=== PATIENT | male | born 1995 | race Caucasian/White ===

== ENCOUNTER 2017-06-08 03:05 | Emergency (ER) | payer SELFPAY ==
[2017-06-08 03:13] VITALS: BP 122/83
--- NOTE | 2017-06-08 03:33 | ER Document Report ---
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 He says he has had the rash for 2 weeks. He was seen [facility] the [facility]. He underwent testing for gonorrhea chlamydia syphilis and HIV and hepatitis. All tests were negative except for the syphilis test which was positive. Patient was therefore given a dose of IM penicillin. He says the rash tonight became much worse. He says it does itch. Is not painful. He denies any sores. He denies any headache or confusion or altered mental status. He has no other complaints at this time. He is received penicillin many times in the past without any adverse reactions. TRAVEL OUTSIDE OF THE [place] IN LAST 30 DAYS: No - Related Data Allergies/Adverse Reactions: No Known Allergies Allergy (Unverified 06/08/17 03:08) Past Medical History - Social History Smoking Status: Unknown if Ever Smoked Frequency of alcohol use: None Drug Abuse: None Family History: Reviewed & Not Pertinent Patient has suicidal ideation: No Patient has homicidal ideation: No Renal/ Medical History: Denies: Hx Peritoneal Dialysis Review of Systems - Review of Systems Notes: My Normal Review Basic REVIEW OF SYSTEMS: CONSTITUTIONAL : Denies fever, chills, or sweats. Denies recent illness. EENT: Denies eye, ear, throat, or mouth pain or symptoms. Denies nasal or sinus congestion. RESPIRATORY: Denies cough, cold, or chest congestion. Denies shortness of breath, difficulty breathing, or wheezing. GASTROINTESTINAL: Denies abdominal pain. Denies nausea, vomiting, or diarrhea. GENITOURINARY: Denies difficulty urinating, painful urination, burning, frequency, or blood in urine. MUSCULOSKELETAL: Denies neck or back pain or joint pain or swelling. SKIN: Macular papular rash over extremities and palms and torso. HEMATOLOGIC : Denies easy bruising or bleeding. NEUROLOGICAL: Denies altered mental status or loss of consciousness. Denies headache. Denies weakness or paralysis or loss of use of either side. Denies problems with gait or speech. Denies sensory or motor loss. ALL OTHER SYSTEMS REVIEWED AND NEGATIVE. Physical Exam - Vital signs Vitals: Temp Pulse Resp BP Pulse Ox 98.1 F 101 H 16 122/83 97 06/08/17 03:10 06/08/17 03:10 06/08/17 03:10 06/08/17 03:10 06/08/17 03:10 - Notes Notes: General Appearance: Well nourished, alert, cooperative, no acute distress, no obvious discomfort. Well-appearing. Head: no swelling or tenderness to the head Eyes: PERRL, EOMI, Conjuctiva clear Mouth: No decreasd moisture Lungs: No wheezing, No rales, No rhonci, No accessory muscle use, good air exchange bilaterally. Heart: Normal rate, Regular rythm, No murmur, no rub Abdomen: Normal BS, soft, No rigidity, No abdominal tenderness, No guarding, no rebound, no abdominal masses, no organomegaly Extremities: strength 5/5 in all extremities, good pulses in all extremities, no swelling or tenderness in the extremities, no edema. Skin: Papular rash over the palms and hands and extremities and torso. Neuro: speech clear, oriented x 3, normal affect, responds appropriately to questions. Cranial nerves II through XII are intact. Patient was all extremities without difficulty. No discoordination. Course - Re-evaluation Re-evalutation: 06/08/17 03:37 Patient complains of worsening rash. Is concerned she is or received treatment. Treatment is just received last 24 hours. I do not expect a Jarisch - Herxheimer reaction because the patient has no fever and he was tested negative for HIV. He is not tachycardic and clinically looks very well. Informed patient that I want to wait before initiating further antibiotic treatment. I did look up on [facility] and alternative treatments on some penicillin include doxycycline. He told the patient to write him a prescription for doxycycline but to not start it unless his rash needs to worsen over the next 24 hours. Encouraged him follow-up closely with the health department within 1 week for reevaluation. I informed him to return to ER immediately if he has fevers, confusion, headache, difficulty ambulating or walking. Patient agrees with plan will be discharged home. Dictation of this chart was performed using voice recognition software; therefore, there may be some unintended grammatical errors. - Vital Signs Vital signs: Temp Pulse Resp BP Pulse Ox 98.1 F 101 H 16 122/83 97 06/08/17 03:10 06/08/17 03:10 06/08/17 03:10 06/08/17 03:10 06/08/17 03:10 Discharge - Discharge Clinical Impression: Syphilis Condition: Good Disposition: HOME, SELF-CARE Additional Instructions: Please hold on filling the prescription of doxycycline. Only fill it if you feel that your rash has continued to worsen by midday tomorrow. If you feel that the rash is worsening then you can start the doxycycline. The doxycycline will make your skin very sensitive to the sun; therefore, you should make sure you wear sunscreen or keep her skin covered when out in the sun. Please return to the ER immediately if you have headache, confusion, difficulty walking or ambulating, or if you feel that you are worsening in any way. Please follow-up with health department 1 week for reevaluation. Prescriptions: Doxycycline Hyclate 100 mg PO BID #28 capsule
== END 2017-06-08 03:45 | disposition home or self-care (01) ==
LOC: ER 03:05
DX: A53.9 Syphilis, unspecified (principal)
CPT/HCPCS: 99283